=== PATIENT | male | born 1945 | race Caucasian/White ===

== ENCOUNTER 2018-04-04 22:42 | Emergency (ER) | payer MEDICARE, BC ==
[~2018-04-04] VITALS: Ht 172.7 cm; Wt 105.0 kg
[~2018-04-04 22:42] MED LIST: ALPR0.5T10 PO; CHLO25TA2 PO; CLON-529 PO; FURO20TA4 PO; GLYB-97 PO; LOSA100T57 PO; METF500T PO; METO25TA6 PO; NIFE60TA10 PO; POTA10TA15 PO; RIVA20TA PO; ROSU40TA PO; TRAZ-219 PO
[2018-04-04 22:44] VITALS: BP 176/83
[2018-04-04] MEDS ORDERED: BUPIVAcaine/PF 2.5 mg/ml (0.25%) 30ml vial IJ ONE (23:15)
[2018-04-04] MEDS ORDERED: LIDOcaine 1.5% w/epinephrine 1:200,000 5ml ampul IJ ONE (23:15)
[2018-04-04] MEDS ORDERED: BUPIVAcaine/PF 2.5mg/ml (0.25%) 10ml vial IJ ONE (23:50)
[2018-04-04 23:53] LABS: ALANINE AMINOTRANSFERASE 22 U/L (12-78); ALBUMIN 2.9 G/DL (3.4-5.0); ALBUMIN/GLOBULIN RATIO 0.8 (1.1-1.5); ALKALINE PHOSPHATASE 61 IU/L (46-116); ANION GAP 11 (8-16); ASPARTATE AMINO TRANSFERASE 17 U/L (10-37); BILIRUBIN,TOTAL 0.2 MG/DL (0.1-1.0); BLOOD UREA NITROGEN 53 MG/DL (7-18); BUN/CREATININE RATIO 19.1 (5.4-32.0); CALCIUM 8.8 MG/DL (8.5-10.1); CHLORIDE 105 MMOL/L (99-107); CREATININE 2.77 MG/DL (0.60-1.10); GLUCOSE 259 MG/DL (70-104); POTASSIUM 3.2 MMOL/L (3.5-5.1); SODIUM 142 MMOL/L (135-145); TOTAL CARBON DIOXIDE 26.1 MMOL/L (24-32); TOTAL PROTEIN 6.4 G/DL (6.4-8.2); eGFR 23 ML/MIN
[2018-04-05 00:01] LABS: PROTHROMBIN TIME 14.7 SECONDS (9.0-12.0)
[2018-04-05 00:02] LABS: INR 1.5 INR; PARTIAL THROMBOPLASTIN TIME 43 SECONDS (22-32)
[2018-04-05 00:20] LABS: BASOPHILS # (AUTO) 0.1 X10'3 (0-0.2); BASOPHILS % (AUTO) 0.4 % (0-1); EOSINOPHILS # (AUTO) 0.3 X10'3 (0-0.9); EOSINOPHILS % (AUTO) 2.8 % (0-6); HEMATOCRIT 35.2 % (42.0-52.0); HEMOGLOBIN 11.8 g/dl (14.0-17.9); LYMPHOCYTES # (AUTO) 2.4 X10'3 (1.1-4.8); LYMPHOCYTES % (AUTO) 20.2 % (21-51); MEAN CORPUSCULAR HEMOGLOBIN 29.8 PG (27.0-31.0); MEAN CORPUSCULAR HGB CONC 33.5 % (33.0-36.5); MEAN CORPUSCULAR VOLUME 88.7 FL (78-98); MEAN PLATELET VOLUME 9.5 FL (7.4-10.4); MONOCYTES # (AUTO) 0.9 X10'3 (0-0.9); MONOCYTES % (AUTO) 7.6 % (2-12); NEUTROPHILS # (AUTO) 8.1 X10'3 (1.8-7.7); PLATELET COUNT 241 X10'3 (140-440); RED BLOOD COUNT 3.96 X10'6 (4.70-6.10); RED CELL DISTRIBUTION WIDTH 14.2 % (11.5-14.5); WHITE BLOOD COUNT 11.7 X10'3 (4.5-11.0)
== END 2018-04-05 01:01 | disposition home or self-care (01) ==
LOC: ER 22:42
DX: M25.512 Pain in left shoulder (principal); R07.89 Other chest pain; I48.91 Unspecified atrial fibrillation; I25.10 Atherosclerotic heart disease of native coronary artery without angina pectoris; E78.00 Pure hypercholesterolemia, unspecified; I12.9 Hypertensive chronic kidney disease with stage 1 through stage 4 chronic kidney disease, or unspecified chronic kidney disease; E11.22 Type 2 diabetes mellitus with diabetic chronic kidney disease; N18.9 Chronic kidney disease, unspecified; Z98.61 Coronary angioplasty status; Z98.890 Other specified postprocedural states; Z87.891 Personal history of nicotine dependence; Z79.899 Other long term (current) drug therapy
CPT/HCPCS: 20552; 36415; 71045; 80053; 84484; 85025; 85610; 85730; 93005; 99284; J3490

== ENCOUNTER 2019-09-01 13:26 | Outpatient (CLI) | payer MEDICARE, BC ==
[~2019-09-01 13:26] MED LIST changes: -TRAZ-219 PO; +TRAZ-256 PO
[2019-09-03 08:10] LABS: HBSAG SCREEN Negative (Negative); HEP A AB, IGM Negative (Negative); HEP B CORE AB, IGM Negative (Negative); HEP B CORE AB, TOT Negative (Negative); HEPATITIS C ANTIBODY <0.1 s/co ratio (0.0-0.9)
== END 2019-09-01 23:59 | disposition home or self-care (01) ==
LOC: LAB 13:26
DX: I12.0 Hypertensive chronic kidney disease with stage 5 chronic kidney disease or end stage renal disease (principal); E11.22 Type 2 diabetes mellitus with diabetic chronic kidney disease; N18.5 Chronic kidney disease, stage 5; B18.1 Chronic viral hepatitis B without delta-agent; R76.11 Nonspecific reaction to tuberculin skin test without active tuberculosis; I48.91 Unspecified atrial fibrillation; F41.9 Anxiety disorder, unspecified; I25.10 Atherosclerotic heart disease of native coronary artery without angina pectoris; Z99.2 Dependence on renal dialysis
CPT/HCPCS: 36415; 86704; 86705; 86706; 86708; 86709; 86803; 87340

== ENCOUNTER 2020-05-10 06:37 | Day surgery (SDC) | payer MEDICARE, BC ==
[~2020-05-10] VITALS: Ht 172.7 cm; Wt 108.2 kg
[2020-05-10] MEDS ORDERED: normal saline 1000ml 1,000 ML IV PRN (07:05)
[2020-05-10] MEDS ORDERED: SPIR50TA5 PO (07:55)
[2020-05-10] MEDS ORDERED: SEVE800T8 PO (07:55)
[2020-05-10] MEDS ORDERED: APIX5TAB3 PO (07:55)
[2020-05-10] MEDS ORDERED: LANTUS SQ (07:55)
[2020-05-10] MEDS ORDERED: iohexol 300mg/ml 100ml inj. ONE ×3 (08:26→10:25)
[2020-05-10] MEDS ORDERED: heparin 1,000 UNITS/NS 500ml 500 ML ONE ×2 (08:26→10:32)
[2020-05-10] MEDS ORDERED: fentaNYL/PF 50MCG/1 ML 2ML syringe ONE (08:26)
[2020-05-10] MEDS ORDERED: LIDOcaine 1%/PF 5ML 10 MG/ML VIAL ONE (08:26)
[2020-05-10 08:39] LABS: BASOPHILS % (AUTO) 0.3 % (0-1); EOSINOPHILS # (AUTO) 0.2 X10'3 (0-0.9); EOSINOPHILS % (AUTO) 1.9 % (0-6); HEMATOCRIT 35.6 % (42.0-52.0); HEMOGLOBIN 11.8 g/dl (14.0-17.9); LYMPHOCYTES # (AUTO) 1.3 X10'3 (1.1-4.8); LYMPHOCYTES % (AUTO) 12.3 % (21-51); MEAN CORPUSCULAR HEMOGLOBIN 31.8 PG (27.0-31.0); MEAN CORPUSCULAR VOLUME 96.1 FL (78-98); MEAN PLATELET VOLUME 9.6 FL (7.4-10.4); MONOCYTES # (AUTO) 0.6 X10'3 (0-0.9); MONOCYTES % (AUTO) 5.4 % (2-12); NEUTROPHILS # (AUTO) 8.3 X10'3 (1.8-7.7); NEUTROPHILS % (AUTO) 80.1 % (42-75); PLATELET COUNT 164 X10'3 (140-440); RED BLOOD COUNT 3.71 X10'6 (4.70-6.10); RED CELL DISTRIBUTION WIDTH 16.1 % (11.5-14.5); WHITE BLOOD COUNT 10.3 X10'3 (4.5-11.0)
[2020-05-10 08:45] VITALS: BP 159/71
[2020-05-10 08:50] LABS: ALBUMIN 3.2 G/DL (3.4-5.0); ANION GAP 11 (8-16); BLOOD UREA NITROGEN 75 MG/DL (7-18); BUN/CREATININE RATIO 14.6 (5.4-32.0); CHLORIDE 108 MMOL/L (99-107); CREATININE 5.12 MG/DL (0.60-1.10); GLUCOSE 146 MG/DL (70-104); POTASSIUM 4.3 MMOL/L (3.5-5.1); SODIUM 142 MMOL/L (135-145); TOTAL CARBON DIOXIDE 22.9 MMOL/L (24-32); eGFR 11 ML/MIN
--- NOTE | 2020-05-10 09:30 | NUR ---
Patient to IR for fistulogram
--- NOTE | 2020-05-10 10:55 | NUR ---
Patient back from IR, s/p fistulogram. Dressing to right FA, CDI. VSS. Patient received no sedation medication. A&O x4.
[2020-05-10 11:00] VITALS: BP 173/94
[2020-05-10 11:45] VITALS: BP 173/94
--- NOTE | 2020-05-10 12:30 | NUR ---
Patient finished eating and is ready to d/c. PIV D/C'd cannula intact. Dressed with 2x2's and coban. Discharge instructions given to patient. All questions answered. Patient ambulated out of hospital on his own, and will drive home.
== END 2020-05-10 12:30 | disposition home or self-care (01) ==
LOC: SSTAY O 06:37
PROVIDERS: ATTEND Radiology Diagnostic Radiology
DX: T82.858A Stenosis of other vascular prosthetic devices, implants and grafts, initial encounter (principal); E11.22 Type 2 diabetes mellitus with diabetic chronic kidney disease; I12.9 Hypertensive chronic kidney disease with stage 1 through stage 4 chronic kidney disease, or unspecified chronic kidney disease; N18.9 Chronic kidney disease, unspecified; I48.91 Unspecified atrial fibrillation; Z79.01 Long term (current) use of anticoagulants; Z79.899 Other long term (current) drug therapy; Z79.4 Long term (current) use of insulin; Z20.822 Contact with and (suspected) exposure to COVID-19; Y83.2 Surgical operation with anastomosis, bypass or graft as the cause of abnormal reaction of the patient, or of later complication, without mention of misadventure at the time of the procedure; Y92.89 Other specified places as the place of occurrence of the external cause
CPT/HCPCS: 36415; 36902; 80048; 85025; 85610; 87635; C1725; C1769; C1894; C9803; J1644; J3010; J7030; Q9967; A6213

== ENCOUNTER 2021-03-05 09:02 | Emergency (ER) | payer MEDICARE, BC ==
[~2021-03-05] VITALS: Ht 172.7 cm; Wt 104.5 kg
[~2021-03-05 09:02] MED LIST changes: -ALPR0.5T10 PO; +APIX5TAB3 PO; -CHLO25TA2 PO; -CLON-529 PO; -FURO20TA4 PO; -GLYB-97 PO; +LANTUS SQ; +LOP25T PO; -METF500T PO; -METO25TA6 PO; -POTA10TA15 PO; -RIVA20TA PO; +SEVE800T8 PO; +SPIR50TA5 PO; -TRAZ-256 PO
[2021-03-05 09:50] LABS: BASOPHILS # (AUTO) 0.1 X10'3 (0-0.2); BASOPHILS % (AUTO) 0.9 % (0-1); EOSINOPHILS # (AUTO) 0.1 X10'3 (0-0.9); EOSINOPHILS % (AUTO) 1.4 % (0-6); HEMATOCRIT 36.6 % (42.0-52.0); HEMOGLOBIN 12.2 g/dl (14.0-17.9); LYMPHOCYTES # (AUTO) 1.3 X10'3 (1.1-4.8); LYMPHOCYTES % (AUTO) 13.5 % (21-51); MEAN CORPUSCULAR HEMOGLOBIN 31.6 PG (27.0-31.0); MEAN CORPUSCULAR HGB CONC 33.4 g/dL (33.0-36.5); MEAN CORPUSCULAR VOLUME 94.5 FL (78-98); MEAN PLATELET VOLUME 9.3 FL (7.4-10.4); MONOCYTES # (AUTO) 0.7 X10'3 (0-0.9); MONOCYTES % (AUTO) 7.2 % (2-12); NEUTROPHILS # (AUTO) 7.4 X10'3 (1.8-7.7); PLATELET COUNT 198 X10'3 (140-440); RED BLOOD COUNT 3.87 X10'6 (4.70-6.10); RED CELL DISTRIBUTION WIDTH 16.8 % (11.5-14.5); WHITE BLOOD COUNT 9.6 X10'3 (4.5-11.0)
[2021-03-05 09:59] LABS: ALANINE AMINOTRANSFERASE 38 U/L (12-78); ALBUMIN 3.3 G/DL (3.4-5.0); ALBUMIN/GLOBULIN RATIO 0.9 (1.1-1.5); ALKALINE PHOSPHATASE 74 IU/L (46-116); ANION GAP 12 (8-16); ASPARTATE AMINO TRANSFERASE 27 U/L (10-37); BILIRUBIN,TOTAL 0.5 MG/DL (0.1-1.0); BLOOD UREA NITROGEN 65 MG/DL (7-18); CALCIUM 9.7 MG/DL (8.5-10.1); CHLORIDE 106 MMOL/L (99-107); CREATININE 6.53 MG/DL (0.60-1.10); GLUCOSE 198 MG/DL (70-104); POTASSIUM 3.5 MMOL/L (3.5-5.1); SODIUM 145 MMOL/L (135-145); TOTAL CARBON DIOXIDE 27.5 MMOL/L (24-32); TOTAL PROTEIN 7.1 G/DL (6.4-8.2); eGFR 8 ML/MIN
[2021-03-05 10:30] VITALS: BP 215/127
[2021-03-05] MEDS ORDERED: hydrALAZINE 20mg/ml inj. IV ONE (10:35)
== END 2021-03-05 11:17 | disposition home or self-care (01) ==
LOC: ER 09:03
DX: E11.22 Type 2 diabetes mellitus with diabetic chronic kidney disease (principal); I12.0 Hypertensive chronic kidney disease with stage 5 chronic kidney disease or end stage renal disease; N18.6 End stage renal disease; R51.9 Headache, unspecified; E87.70 Fluid overload, unspecified; I48.91 Unspecified atrial fibrillation; E78.00 Pure hypercholesterolemia, unspecified; I25.10 Atherosclerotic heart disease of native coronary artery without angina pectoris; Z95.5 Presence of coronary angioplasty implant and graft; Z79.4 Long term (current) use of insulin; Z79.899 Other long term (current) drug therapy; Z79.01 Long term (current) use of anticoagulants; Z99.2 Dependence on renal dialysis
CPT/HCPCS: 36415; 71045; 80053; 83880; 84145; 84484; 85025; 93005; 99285

== ENCOUNTER 2021-06-25 19:22 | Inpatient (IN) | payer MEDICARE, BC ==
[~2021-06-25] VITALS: Ht 172.7 cm; Wt 106.4 kg
[~2021-06-25 19:22] MED LIST changes: +CITA20TA28 PO; +DOXA1TAB2 PO; +FURO80TA87 PO; +INSU300I SQ; +NIFE60TA80 PO; +RIVA20TA PO
--- NOTE | 2021-06-25 22:09 | NUR ---
PT PLACED IN [facility] BED C, VITAL SIGNS DONE. PT BEING SEEN FOR DIZZINESS.
[2021-06-25 22:19] LABS: BASOPHILS % (AUTO) 0.4 % (0-1); EOSINOPHILS % (AUTO) 0.2 % (0-6); HEMATOCRIT 32.8 % (42.0-52.0); HEMOGLOBIN 10.7 g/dl (14.0-17.9); LYMPHOCYTES # (AUTO) 0.7 X10'3 (1.1-4.8); LYMPHOCYTES % (AUTO) 5.7 % (21-51); MEAN CORPUSCULAR HEMOGLOBIN 31.9 PG (27.0-31.0); MEAN CORPUSCULAR HGB CONC 32.5 g/dL (33.0-36.5); MEAN CORPUSCULAR VOLUME 98.2 FL (78-98); MEAN PLATELET VOLUME 10.2 FL (7.4-10.4); MONOCYTES # (AUTO) 0.9 X10'3 (0-0.9); NEUTROPHILS % (AUTO) 86.7 % (42-75); PLATELET COUNT 176 X10'3 (140-440); RED BLOOD COUNT 3.34 X10'6 (4.70-6.10); RED CELL DISTRIBUTION WIDTH 16.1 % (11.5-14.5); WHITE BLOOD COUNT 12.7 X10'3 (4.5-11.0)
[2021-06-25 22:28] LABS: APTT 29 SECONDS (22-32)
--- NOTE | 2021-06-25 23:45 | NUR ---
PT HAD CATH PLACED EARLIER TODAY HERE AND HAS UNCONTROLLED STEADY BLEEDING SINCE. LARGE BLOOD CLOTS PRESENT AROUND SITE. DR. MANN ASSISTED WITH REMOVAL OF OLD DRESSING AND APPLICATION OF SURGICIL AT INCISION SITE OF PORT AND 4X4S APPLIED WITH LARGE TAGADERM. PRESSURE APPLIED TO SITE WITH CIRCUMFRENTIAL CEDRIC WRAPS. AFTER 30 MINUTES PT BLED THROUGH DRESSING ALREADY.
[2021-06-25] MEDS ORDERED: human prothrombin complex-PCC 100 ML IV ONE (23:50)
--- NOTE | 2021-06-26 00:05 | NUR ---
pt presents to the ed tx area from [facility] with bleeding and clots from new port on left chest. Per imer Locke in [facility], pt had a new dialysis port inserted earlier today,and it has been bleeding since then per Cornelia, and pt. Pt is cleaned of blood from port and chest, site reinforced with 4x4 gauze and tape. Pt.a/o, vss, will ctm.
[2021-06-26 00:15] LABS: ALANINE AMINOTRANSFERASE 32 U/L (12-78); ALBUMIN 3.1 G/DL (3.4-5.0); ALBUMIN/GLOBULIN RATIO 0.9 (1.1-1.5); ALKALINE PHOSPHATASE 60 IU/L (46-116); ANION GAP 15 (8-16); ASPARTATE AMINO TRANSFERASE 22 U/L (10-37); BILIRUBIN,TOTAL 0.5 MG/DL (0.1-1.0); BLOOD UREA NITROGEN 111 MG/DL (7-18); BUN/CREATININE RATIO 15.8 (5.4-32.0); CALCIUM 9.4 MG/DL (8.5-10.1); CHLORIDE 110 MMOL/L (99-107); CREATININE 7.03 MG/DL (0.60-1.10); GLUCOSE 165 MG/DL (70-104); POTASSIUM 4.5 MMOL/L (3.5-5.1); SODIUM 142 MMOL/L (135-145); TOTAL CARBON DIOXIDE 16.8 MMOL/L (24-32); TOTAL PROTEIN 6.4 G/DL (6.4-8.2); eGFR 8 ML/MIN
--- NOTE | 2021-06-26 01:00 | NUR ---
Pt asleep snoring, spouse at bs
--- NOTE | 2021-06-26 01:44 | NUR ---
pt medicated per mar
[2021-06-26] MEDS ORDERED: APIX5TAB3 PO (02:45)
[2021-06-26] MEDS ORDERED: SEVE800T8 PO (02:46)
--- NOTE | 2021-06-26 03:00 | NUR ---
blood pressure remains elevated; pt assissted to use urinal, Dr Carson at bs
[2021-06-26] MEDS ORDERED: sevelamer carbonate 800mg tablet PO PRN (04:25)
[2021-06-26] MEDS ORDERED: ondansetron/PF 4mg/2ml inj IV PRN (04:30)
[2021-06-26] MEDS ORDERED: mag hydrox/Alum hydrox/simeth 30ml oral suspension PO PRN (04:30)
[2021-06-26] MEDS ORDERED: acetaminophen 325mg tablet PO PRN ×2 (04:30)
[2021-06-26] MEDS ORDERED: morphine 2 MG/ML inj. syringe IV PRN ×2 (04:30)
[2021-06-26] MEDS ORDERED: bisacodyl 10mg suppository rectal RC PRN (04:30)
[2021-06-26] MEDS ORDERED: diphenhydrAMINE 25mg capsule PO PRN (04:30)
[2021-06-26] MEDS ORDERED: HYDROcodone/acetaminophen 5mg/325mg tablet PO PRN (04:30)
[2021-06-26] MEDS ORDERED: ondansetron 4mg rapidly disintigrating tab PO PRN (04:30)
[2021-06-26] MEDS ORDERED: diphenhydrAMINE 50 mg/ml inj IV PRN (04:30)
[2021-06-26] MEDS ORDERED: niCARDipine-NS 40mg/200ml IVPB 200 ML IV SCH (04:30)
[2021-06-26] MEDS ORDERED: acetaminophen 650mg rectal suppository RC PRN (04:30)
[2021-06-26] MEDS ORDERED: HYDROcodone/acetaminophen 10/325mg tab PO PRN (04:30)
[2021-06-26] MEDS ORDERED: magnesium hydroxide 30ml (MOM) UD suspension PO PRN (04:30)
[2021-06-26] MEDS ORDERED: sodium bicarbonate (8.4%) inj. 1 MEQ/ML ML IV ONE (04:35)
[2021-06-26] MEDS ORDERED: DEXTROSE 15 GM of carb/4 tabs (each vial/BOTTLE has 4 tablets) PO PRN ×2 (04:35)
[2021-06-26] MEDS ORDERED: MESSAGE TO PHARMACY PO ONE (04:35)
[2021-06-26] MEDS ORDERED: insulin Lispro (HumaLOG) vial - multi-dose SQ SCH (04:35)
[2021-06-26] MEDS ORDERED: glucagon, human recombinant 1mg kit SUBCUT PRN (04:35)
[2021-06-26] MEDS ORDERED: dextrose 50%-water 50ml dispensing syringe IV PRN ×2 (04:35)
[2021-06-26 05:06] LABS: MAGNESIUM 2.7 MG/DL (1.5-2.4); PHOSPHORUS 7.8 MG/DL (2.3-4.5)
--- NOTE | 2021-06-26 05:18 | NUR ---
pt medicated per mar; spouse at bs, denies need
[2021-06-26] MEDS ORDERED: NIFEdipine XL 30mg tablet PO SCH (08:00)
[2021-06-26] MEDS ORDERED: sevelamer carbonate 800mg tablet PO SCH (08:00)
[2021-06-26] MEDS ORDERED: docusate sod 100mg capsule PO SCH (08:00)
[2021-06-26] MEDS ORDERED: apixaban 5mg tablet PO SCH (08:00)
[2021-06-26] MEDS ORDERED: pantoprazole 40MG/NS 100ML BAG 100 ML IV SCH (08:00)
[2021-06-26] MEDS ORDERED: doxazosin mesylate 2mg tablet PO SCH (08:00)
[2021-06-26] MEDS ORDERED: metoprolol tartrate 25mg tablet PO SCH (08:00)
[2021-06-26] MEDS ORDERED: losartan 50mg tablet PO SCH (08:00)
[2021-06-26] MEDS ORDERED: CITALOpram 10mg tablet PO SCH (08:00)
--- NOTE | 2021-06-26 08:35 | NUR ---
Zulay from [facility] called to check on patient and states patient has not been dialyzed in one week. Zulay will call dialysis nurse here at hospital to arrange dialysis. Zulay:
--- NOTE | 2021-06-26 09:45 | NUR ---
Called RADHA Biswas at [facility] to let her know patient is being discharged. Zulay requests patient to go directly to dialysis for treatment; patient notified and stated he will not go directly to [facility] with will go "some time today."
[2021-06-26 09:55] VITALS: BP 138/68
[2021-06-26] MEDS ORDERED: atorvastatin 20mg tablet PO SCH (21:00)
[2021-06-26] MEDS ORDERED: insulin glargine (Lantus) pen - multi-dose SQ SCH (21:00)
[2021-06-26] MEDS ORDERED: temazepam 15mg capsule PO PRN (21:00)
== END 2021-06-26 09:55 | disposition home or self-care (01) | DRG 314 ==
LOC: ER 19:23 → ED HOLD 06-26 02:36 → UNDOADMIN 06-26 02:36 → UNDODISIN 06-26 09:55
PROVIDERS: ADMIT Family Medicine; ATTEND Internal Medicine
PROC: 0HC5XZZ Extirpation of Matter from Chest Skin, External Approach (ICD-10-PCS; principal; 2021-06-25)
DX: T82.838A Hemorrhage due to vascular prosthetic devices, implants and grafts, initial encounter (principal); N18.6 End stage renal disease; E87.2 Acidosis; I13.2 Hypertensive heart and chronic kidney disease with heart failure and with stage 5 chronic kidney disease, or end stage renal disease; I50.32 Chronic diastolic (congestive) heart failure; I97.620 Postprocedural hemorrhage of a circulatory system organ or structure following other procedure; E11.22 Type 2 diabetes mellitus with diabetic chronic kidney disease; E78.00 Pure hypercholesterolemia, unspecified; E78.5 Hyperlipidemia, unspecified; Y84.1 Kidney dialysis as the cause of abnormal reaction of the patient, or of later complication, without mention of misadventure at the time of the procedure; F41.9 Anxiety disorder, unspecified; I25.10 Atherosclerotic heart disease of native coronary artery without angina pectoris; I48.91 Unspecified atrial fibrillation; Z79.01 Long term (current) use of anticoagulants; Z79.4 Long term (current) use of insulin; Z79.899 Other long term (current) drug therapy; Z99.2 Dependence on renal dialysis; Y92.89 Other specified places as the place of occurrence of the external cause
CPT/HCPCS: 36415; 36558; 71045; 76937; 77001; 80053; 83036; 83735; 83880; 84100; 85025; 85610; 85730; 86885; 86900; 86901; 96365; 99152; 99153; 99285; A9270; C1750; C1769; C1894; G0378; J0360; J1644; J1815; J2250; J3010; J3490; J7168; Q9967

== ENCOUNTER 2021-06-26 14:44 | Emergency (ER) | payer MEDICARE, BC ==
[~2021-06-26] VITALS: Ht 172.7 cm; Wt 106.4 kg
[~2021-06-26 14:44] MED LIST changes: -LANTUS SQ; -NIFE60TA10 PO
[2021-06-26 16:00] LABS: BASOPHILS # (AUTO) 0.1 X10'3 (0-0.2); BASOPHILS % (AUTO) 0.5 % (0-1); EOSINOPHILS % (AUTO) 0.1 % (0-6); HEMATOCRIT 30.2 % (42.0-52.0); HEMOGLOBIN 9.9 g/dl (14.0-17.9); LYMPHOCYTES # (AUTO) 0.6 X10'3 (1.1-4.8); LYMPHOCYTES % (AUTO) 5.4 % (21-51); MEAN CORPUSCULAR HEMOGLOBIN 31.5 PG (27.0-31.0); MEAN CORPUSCULAR HGB CONC 32.7 g/dL (33.0-36.5); MEAN CORPUSCULAR VOLUME 96.5 FL (78-98); MEAN PLATELET VOLUME 9.9 FL (7.4-10.4); MONOCYTES # (AUTO) 0.7 X10'3 (0-0.9); MONOCYTES % (AUTO) 6.1 % (2-12); NEUTROPHILS # (AUTO) 10.5 X10'3 (1.8-7.7); NEUTROPHILS % (AUTO) 87.9 % (42-75); PLATELET COUNT 172 X10'3 (140-440); RED BLOOD COUNT 3.13 X10'6 (4.70-6.10); RED CELL DISTRIBUTION WIDTH 15.7 % (11.5-14.5); WHITE BLOOD COUNT 11.9 X10'3 (4.5-11.0)
[2021-06-26 16:12] LABS: ALANINE AMINOTRANSFERASE 31 U/L (12-78); ALKALINE PHOSPHATASE 53 IU/L (46-116); ANION GAP 12 (8-16); ASPARTATE AMINO TRANSFERASE 22 U/L (10-37); BILIRUBIN,TOTAL 0.8 MG/DL (0.1-1.0); BLOOD UREA NITROGEN 59 MG/DL (7-18); BUN/CREATININE RATIO 13.9 (5.4-32.0); CALCIUM 9.1 MG/DL (8.5-10.1); CHLORIDE 105 MMOL/L (99-107); CREATININE 4.24 MG/DL (0.60-1.10); GLUCOSE 119 MG/DL (70-104); POTASSIUM 3.8 MMOL/L (3.5-5.1); SODIUM 142 MMOL/L (135-145); TOTAL CARBON DIOXIDE 25.3 MMOL/L (24-32); TOTAL PROTEIN 6.1 G/DL (6.4-8.2); eGFR 14 ML/MIN
--- NOTE | 2021-06-26 16:21 | NUR ---
TO CT VIA [facility]
--- NOTE | 2021-06-26 16:38 | NUR ---
Spoke with dialysis nurse at [facility] who treated patient today. RADHA White stated patient became confused 2 hours and 45 minutes into dialysis and began "thrashing around" and tried to get out of the chair while he was connected to the machine.
[2021-06-26 18:23] LABS: CLARITY,URINE SLIGHTLY CLOUDY (Clear); COLOR,URINE YELLOW (Yellow); GLUCOSE, URINE 250 mg/dl (Neg); KETONES,URINE TRACE mg/dl (Neg); LEUKOCYTE ESTERASE ,URINE NEGATIVE (Neg); NITRITES, URINE NEGATIVE (Neg); OCCULT BLOOD,URINE MODERATE (Neg); PROTEIN,URINE >=300 mg/dl (Neg); UROBILINOGEN,URINE 0.2 E.U/dL (0.2-1.0)
[2021-06-26 18:26] LABS: UA COLLECTION TYPE NON-SPECIFIED
[2021-06-26 18:48] LABS: BACTERIA,URINE 1+ /HPF (Neg); MUCUS STRANDS FEW /LPF (Neg); RBC,URINE 0-2 /HPF (0-2); SQUAMOUS EPITHELIAL CELL,UR FEW /LPF (FEW)
[2021-06-26 18:49] LABS: FINE GRANULAR CAST 0-3 /LPF (NEGATIVE); HYALINE CASTS 0-3 /LPF (NEGATIVE)
[2021-06-26 19:09] VITALS: BP 165/96
== END 2021-06-26 19:11 | disposition home or self-care (01) ==
LOC: ER 14:45
DX: G93.40 Encephalopathy, unspecified (principal); E11.22 Type 2 diabetes mellitus with diabetic chronic kidney disease; I12.0 Hypertensive chronic kidney disease with stage 5 chronic kidney disease or end stage renal disease; N18.6 End stage renal disease; I48.91 Unspecified atrial fibrillation; I25.10 Atherosclerotic heart disease of native coronary artery without angina pectoris; E78.00 Pure hypercholesterolemia, unspecified; Z99.2 Dependence on renal dialysis; Z95.5 Presence of coronary angioplasty implant and graft; Z79.4 Long term (current) use of insulin; Z79.899 Other long term (current) drug therapy
CPT/HCPCS: 36415; 70450; 71045; 80053; 81001; 83605; 85025; 87040; 87088; 93005; 99285